=== PATIENT | male | born 1965 | race Two or more races ===

== ENCOUNTER 2024-12-04 23:59 | Emergency (ER) | payer OTHER ==
[~2024-12-04] VITALS: Ht 180.3 cm; Wt 109.1 kg
[2024-12-05 00:11] VITALS: TEMP 98.8
[2024-12-05 00:55] LABS: PLATELET COUNT (AUTO) 258 K/uL (150-450); RED BLOOD CELL COUNT(AUTO) 4.47 MIL/uL (4.50-5.90); RED CELL DISTRIBUTION WIDTH 13.8 % (11.5-14.5); WHITE BLOOD COUNT (AUTO) 8.1 K/uL (4.5-11.0)
[2024-12-05 01:02] LABS: CALCIUM, TOTAL 8.7 mg/dL (8.8-10.5); CREATININE 1.02 mg/dL (0.60-1.30); GLOMERULAR FILTR. RATE CALC > 60 mL/min (>60); GLUCOSE,RANDOM 117 mg/dL (70-110); SODIUM SERUM 141 mmol/L (136-145); UREA NITROGEN, BLOOD 18 mg/dL (7-18)
[2024-12-05 01:08] LABS: ASPARTATE AMINOTRANSFERASE 16.0 U/L (15-37); TOTAL PROTEIN, SERUM 7.4 g/dL (6.4-8.2)
[2024-12-05 01:28] VITALS: BP 133/84; PULSE 69; RESP 18; O2SAT 97
[2024-12-05] MEDS: DEXAMETHASONE SOD PHOS 4 MG/ML 5 ML VIAL IM ONE (02:07)
== END 2024-12-05 02:18 | disposition home or self-care (01) ==
LOC: EMS 12-05 00:29
DX: M32.9 Systemic lupus erythematosus, unspecified (principal)
CPT/HCPCS: 99284; 80048; 80076; 85025; 36415; 93005; 96372; J1100